=== PATIENT | male | born 1970 | race Caucasian/White ===

== ENCOUNTER 2016-09-22 06:45 | Emergency (ER) | payer OTHER ==
[~2016-09-22 06:45] MED LIST: ERYTHROMYCIN OS
== END 2016-09-22 07:55 | disposition home or self-care (01) ==
LOC: CED 06:45
DX: L02.31 Cutaneous abscess of buttock (principal); L03.317 Cellulitis of buttock; L40.0 Psoriasis vulgaris; F17.200 Nicotine dependence, unspecified, uncomplicated
CPT/HCPCS: 99283

== ENCOUNTER 2016-09-25 19:51 | Emergency (ER) | payer OTHER | END 2016-09-25 22:09 | disposition home or self-care (01) | LOC: CED 19:51 → CFTX 19:51 | DX: L02.31 Cutaneous abscess of buttock (principal); F17.210 Nicotine dependence, cigarettes, uncomplicated | CPT/HCPCS: 10060; 99283 ==

== ENCOUNTER 2016-09-28 17:48 | Emergency (ER) | payer OTHER | END 2016-09-28 18:25 | disposition home or self-care (01) | LOC: CED 17:48 → CFTX 17:48 → CED 18:14 → CFTX 18:14 | DX: Z48.03 Encounter for change or removal of drains (principal); L02.31 Cutaneous abscess of buttock | CPT/HCPCS: 99283 ==